=== PATIENT | female | born 1945 | race Caucasian/White ===

== ENCOUNTER 2016-08-09 12:13 | Day surgery (SDC) | payer MEDICARE ==
[2016-08-09] MEDS ORDERED: PROPOFOL 10 MG/ML VIAL IV ONE (15:48)
[2016-08-09] MEDS ORDERED: LIDOCAINE 2% MDV (20MG/ML) 20ML VIAL IV ONE (15:48)
[2016-08-09] MEDS ORDERED: MIDAZOLAM HCL 2MG/2ML VIAL IV ONE (15:48)
--- NOTE | 2016-08-11 07:00 | Operative Note ---
DATE OF SURGERY: OPERATION: COLONOSCOPY with cold forceps polypectomy. PREOPERATIVE DIAGNOSIS: History of adenomatous polyps. POSTOPERATIVE DIAGNOSES: 1. Severe radiation proctosigmoiditis. 2. Descending colon polyp. PREPARATION QUALITY: Good. ESTIMATED BLOOD LOSS: Minimal. SPECIMENS: Descending colon polyp. PROCEDURE: After informed consent was obtained from the patient, she was placed in the left lateral decubitus position in the endoscopy suite, sedated and monitored by the department of anesthesia. Digital rectal exam was unremarkable. A well-lubricated [id number] colonoscope was inserted into the rectum and advanced through a severely stenotic and stiffened rectosigmoid colon to the descending colon, transverse colon, ascending colon to the level of the ileocecal valve. I did not intubate the cecal cap per se but was able to examine the cecum, which appeared unremarkable. Transabdominal pressure and change in patient position was required. I presume there was a significant amount of scarring and perhaps abdominopelvic adhesions restricting ease of passage of the colonoscope. In any event, the cecum, ascending colon, and transverse colon were unremarkable. The descending revealed diminutive polyp removed in piecemeal fashion with a cold forceps. The remainder of the descending colon and sigmoid colon and rectum were unremarkable other than the aforementioned radiation changes. I did not invert the endoscope secondary to the prior radiation and stenosis. The rectal ampulla deflated, and the endoscope was removed. RECOMMENDATIONS: I would suggest the patient undergo a repeat colonoscopy in 5 years. As always, thank you for allowing me to participate in the healthcare of your patients. Roe Magallon DO CC: Malik MOSQUEDA
== END 2016-08-09 14:14 | disposition home or self-care (01) ==
LOC: HOP 12:13
PROVIDERS: ATTEND Internal Medicine Gastroenterology
DX: Z12.11 Encounter for screening for malignant neoplasm of colon (principal); D12.4 Benign neoplasm of descending colon; K63.5 Polyp of colon; E78.00 Pure hypercholesterolemia, unspecified; I10 Essential (primary) hypertension; E03.9 Hypothyroidism, unspecified

== ENCOUNTER 2017-07-09 17:15 | Emergency (ER) | payer MEDICARE ==
[2017-07-09] MEDS ORDERED: SODIUM CHLORIDE 0.9% 500 ML IV ONE (18:15)
[2017-07-09] MEDS ORDERED: ACETAMINOPHEN 1,000 MG/100 ML BTL IVPB ONE (18:16)
--- NOTE | 2017-07-09 18:21 | Emergency Department Record ---
History of Present Illness - General Chief complaint: Flank Pain Stated complaint: LOWER BACK PAIN/KIDNEY STONES Time Seen by Provider: 07/09/17 18:10 Source: Patient, Family Mode of Arrival: Ambulatory Limitations: No limitations - History of Present Illness Initial comments: 71 yo female presents with left flank pain that started today. The pain is somewhat sharp and comes and goes. She reports she has had kidney stones in the past. This pain is similar. She does report however that the pain is worse with getting up and moving. She has a history of scoliosis as well. No abdominal pain. No fevers, chills, nausea, or vomiting. No diarrhea or changes in the stools. No blood in the stools. PCP Hankenson. QUINN Complaint: Other Onset/Timin -: Hour(s) Radiation: L flank Severity: Moderate Quality: Aching, Sharp Consistency: Constant Improves with: Other Worsens with: Movement Patient : No Associated Symptoms: Denies other symptoms - Related Data Allergies Allergy/AdvReac Type Severity Reaction Status Date / Time ibuprofen [IBUPROFEN] Allergy Intermediate RAPID Verified 08/27/15 09:16 HEART RATE Travel Screening - Travel/Exposure Within Last 30 Days Have you traveled within the last 30 days?: No - Travel/Exposure Within Last Year Have you traveled outside the [place] in the last year?: No - Additonal Travel Details Have you been exposed to anyone with a communicable illness?: No - Travel Symptoms Symptom Screening: None Review of Systems Constitutional: Denies: Chills, Fever, Malaise, Night sweats, Weakness Eyes: Denies: Eye discharge, Eye pain, Photophobia, Vision change ENT: Denies: Congestion, Throat pain Respiratory: Denies: Cough, Dyspnea, Hemoptysis, Stridor, Wheezes Cardiovascular: Denies: Chest pain, Palpitations, Syncope Endocrine: Denies: Fatigue Gastrointestinal: Reports: As per HPI, Other (Left flank pain). Denies: Abdominal pain, Diarrhea, Nausea, Vomiting Genitourinary: Denies: Dysuria, Hematuria, Urgency Musculoskeletal: Reports: As per HPI, Back pain. Denies: Arthralgia, Neck pain Skin: Denies: Bruising, Change in color, Pruritus, Rash Neurological: Denies: Confusion, Headache, Numbness, Weakness Psychiatric: Denies: Anxiety Hematological/Lymphatic: Denies: Anemia, Blood Clots, Easy bleeding, Easy bruising, Swollen glands Past Medical History - SOCIAL HISTORY Smoking Status: Never smoker Alcohol Use: None Drug Use: None - RESPIRATORY Hx Respiratory Disorders: Yes Hx Pneumonia: Yes (06/20) - CARDIOVASCULAR Hx Cardio Disorders: Yes Hx Deep Vein Thrombosis: Yes (left leg after hyst.) Hx Hypertension: Yes (on meds good control) Hx Irregular Heartbeat: Yes (i have afib. probs with bleeding on coumadin) Comment:: cardioversion 2008 - [facility] Hx Neuro Disorders: Yes Hx Neuropathy: Yes Hx TIA: Yes (no residual) Hx Weakness: Yes (generalized) - GI Hx GI Disorders: Yes Hx Abdominal Pain: Yes Hx Irritable Bowel: Yes Hx Ulcer: Yes Hx of Polyps: Yes Comment:: GI BLEED POST COUMADIN THERAPY - Hx Genitourinary Disorders: Yes Hx Bladder Problem: Yes (leaking/incontinence) Hx Kidney Stones: Yes - ENDOCRINE Hx Endocrine Disorders: Yes Hx Thyroid Disease: Yes - MUSCULOSKELETAL Hx Musculoskeletal Disorders: Yes Hx Arthritis: Yes Hx Gout: Yes Hx Osteoporosis: Yes - PSYCH Hx Psych Problems: No - HEMATOLOGY/ONCOLOGY Hx Hematology/Oncology Disorders: Yes Hx Anemia: Yes Hx Cancer: Yes (uterine) Hx Radiation Therapy: Yes Hx Clotting Problems: Yes (intestinal bleeding when on coumadin) Hx Blood Transfusions: Yes Family Medical History Any Significant Family History?: No Hx Cancer: Mother Hx Diabetes: Grandparents Hx Heart Disease: Mother, Grandparents Physical Exam - General General Appearance: Alert, Oriented x3, Cooperative, No acute distress Limitations: No limitations - Head Head exam: Atraumatic, Normocephalic, Normal inspection - Eye Eye exam: Normal appearance. negative: Conjunctival injection, Periorbital swelling, Scleral icterus - ENT ENT exam: Normal exam, Mucous membranes moist Ear exam: Normal external inspection Nasal Exam: Normal inspection Mouth exam: Normal external inspection - Neck Neck exam: Normal inspection, Full ROM. negative: Tenderness - Respiratory Respiratory exam: Normal lung sounds bilaterally. negative: Accessory muscle use, Decreased breath sounds, Respiratory distress, Rhonchi, Stridor, Wheezes - Cardiovascular Cardiovascular Exam: Regular rate, Normal rhythm, Normal heart sounds - GI/Abdominal GI/Abdominal exam: Soft. negative: Normal bowel sounds, Distended, Guarding, Hernia, Rebound, Rigid, Tenderness - Rectal Rectal exam: Deferred - exam: Deferred - Extremities Extremities exam: Normal inspection, Full ROM, Normal capillary refill. negative: Pedal edema, Tenderness - Back Back exam: Reports: Normal inspection, CVA tenderness (L), Full ROM, Tenderness. Denies: Muscle spasm, Rash noted - Neurological Neurological exam: negative: Abnormal gait, Alert, Altered, Oriented X3, Reflexes normal - Psychiatric Psychiatric exam: Normal affect, Normal mood. negative: Agitated, Anxious - Skin Skin exam: Dry, Intact, Normal color, Warm Course Vital Signs 07/09/17 17:58 Temperature 99.4 F Pulse Rate 112 H Respiratory 20 Rate Blood Pressure 130/81 Pulse Ox 95 - Reevaluation(s) Reevaluation #1: 07/09/17 18:45 The labs were reviewed The WBC count is elevated at 16 The UA is N+ and LE+ 07/09/17 20:[address] was reviewed She has severe left sided Hydronephrosis and Hydroureter NO definite stone but beam hardening artifact limits the pelvis somewhat. 07/09/17 20:21 The patient prefers [facility] for transfer I paged the electronic prepress operator IM and Urology. 07/09/17 20:27 I SW the hospitalist electronic prepress operator Dr Morris She accepts the patient for transfer Awaiting call back from urology 07/09/17 20:54 The urology resident called back and was given the patient information for transfer consultation. Medical Decision Making - Lab Data Result diagrams: 07/09/17 18:17 07/09/17 18:17 Disposition Disposition: Transfer Clinical Impression: Hydronephrosis Urinary tract infection Qualifiers: Urinary tract infection type: site unspecified Hematuria presence: without hematuria Qualified Code(s): N39.0 - Urinary tract infection, site not specified Disposition: Acute Care Hospital Transfer Transfer To: [facility] Reason For Transfer: Ureteral Obstruction with infection Accepting Physician: Arturo Time Discussed w/Accepting Physician: 20:28 Condition: (2) Stable Forms: Patient Portal Access Time of Disposition: 20:28 Quality - Quality Measures Quality Measures: N/A - Blood Pressure Screening Does Patient Have Any of the Following: No Blood Pressure Classification: Normal BP Reading Systolic Measurement: 109 Diastolic Measurement: 57 Screening for High Blood Pressure: < Normal BP, F/U Not Required > [G8783] Pre-Hypertensive Follow-up Interventions: Referral to alternative/primary care provider.
[2017-07-09 18:24] LABS: HEMATOCRIT 36.6 % (35.0-47.0); HEMOGLOBIN 12.2 gm/dl (11.6-16.0); MEAN CELL VOLUME 102.2 fl (81-97); MEAN CORPUSCULAR HGB CONC 33.3 g/dl (32-36); MEAN PLATELET VOLUME 10.4 fl (7.4-10.4); PLATELET COUNT 239 K/uL (130-400); RED BLOOD COUNT 3.58 M/uL (3.80-5.40); RED CELL DISTRIBUTION WIDTH 13.8 % (11.5-14.5); WHITE BLOOD COUNT W/O DIFF 16.6 K/uL (4.2-12.2)
[2017-07-09 18:35] LABS: URINE APPEARANCE CLOUDY; URINE BILIRUBIN NEGATIVE (NEGATIVE); URINE BLOOD MODERATE (NEGATIVE); URINE COLOR YELLOW; URINE GLUCOSE (UA) NEGATIVE (NEGATIVE); URINE KETONE NEGATIVE (NEGATIVE); URINE LEUKOCYTE ESTERASE LARGE (NEGATIVE); URINE NITRITE POSITIVE (NEGATIVE); URINE UROBILINOGEN 0.2 E.U./dL (0.20 - 1.00)
[2017-07-09 18:37] LABS: BLOOD UREA NITROGEN 19 mg/dL (8-23); CREATININE 0.9 mg/dL (0.5-0.9); EST GLOMERULAR FILTRATION RATE > 60 mL/min
[2017-07-09 18:40] LABS: GLUCOSE,RANDOM 195 mg/dL (74-109); INR 0.97; PARTIAL THROMBOPLASTIN TIME 26.1 SECONDS (24.5-39.1); PROTHROMBIN TIME (PATIENT) 10.5 SECONDS (9.5-12.1)
[2017-07-09 18:48] LABS: URINE BACTERIA 3+; URINE EPITHELIAL CELLS 0 - 2 (FEW)
[2017-07-09] MEDS ORDERED: CEFTRIAXONE SODIUM 1 GM in 0.9 % SODIUM CHLORIDE 100ML 100 ML IVPB ONE (19:14)
[2017-07-09] MEDS ORDERED: MORPHINE SULFATE 5 MG/ML PFS IVP ONE (19:31)
[2017-07-09] MEDS ORDERED: 0.9 % SODIUM CHLORIDE 1000ML 1,000 ML IV ONE (20:23)
[2017-07-09] MEDS ORDERED: KETOROLAC 30 MG/ML VIAL IVP ONE (20:23)
--- NOTE | 2017-07-10 19:20 | CT SCAN REPORT ---
EXAM: CT SCAN ABDOMEN/PELVIS WO CONTRAST HISTORY: LEFT FLANK PAIN, HEMATURIA. TECHNIQUE: Sequential axial images were obtained from the diaphragms through the ischiorectal fossa without intravenous or oral contrast administration. FINDINGS: There is severe left hydronephrosis/hydroureter. The exact transition point is difficult to observe due to artifact from left hip prosthesis. No calculus is appreciated, however. No gross abnormalities within the urinary bladder. There is s small and large bowel-containing Spigelian hernia. No evidence of obstruction. The unopacified liver appears normal. Gallbladder appears normal. The pancreas and spleen appear normal. The adrenal glands appear normal. There are expansile cystic lesions in the sacrum, likely related to diverticula. These appear similar in appearance when compared to the prior examination. The small and large bowel appears normal. There is atheromatous change of the abdominal vasculature. There is severe scoliotic curvature of the thoracolumbar spine. IMPRESSION: 1. SEVERE LEFT HYDRONEPHROSIS/HYDROURETER. THE TRANSITION POINT IS DIFFICULT TO EVALUATE DUE TO BEAM-HARDENING ARTIFACT FROM LEFT HIP PROSTHESIS. 2. 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 NO EVIDENCE OF OBSTRUCTION. 3. SEVERE SCOLIOTIC CURVATURE OF THE THORACOLUMBAR SPINE. 4. EXPANSILE LESIONS IN THE SACRUM/COCCYX. 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 5. 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 JOB NUMBER: [id number] [facility]
== END 2017-07-09 21:56 | disposition short-term general hospital (02) ==
LOC: ER 17:15
DX: N13.30 Unspecified hydronephrosis (principal); N39.0 Urinary tract infection, site not specified; R31.0 Gross hematuria; K43.9 Ventral hernia without obstruction or gangrene; I10 Essential (primary) hypertension; Z87.442 Personal history of urinary calculi
CPT/HCPCS: 74176; 80048; 81001; 85027; 85610; 85730; 96361; 96365; 96366; 96375; 99285; J1885; J7030

== ENCOUNTER 2017-12-18 10:31 | Emergency (ER) | payer MEDICARE ==
--- NOTE | 2017-12-18 10:58 | Emergency Department Record ---
History of Present Illness - General Chief Complaint: Fall Injury Stated Complaint: FALL/HIP PAIN Time Seen by Provider: 12/18/17 10:52 Source: Patient, RN notes reviewed Mode of Arrival: Wheelchair - History of Present Illness Initial Comments: fall yesterday and having left hip pain and worse when she walks on it. 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 Fall Witnessed: No Place Fall Occurred: Home Loss of Consciousness: None Prolonged Down Time?: No Symptoms Prior to Fall: None Severity: Moderate Severity scale (1-10): 6 Quality: Aching Associated Symptoms: Denies - Trey Coma Scale Eye Response: (4) Open spontaneously Motor Response: (6) Obeys commands Verbal Response: (5) Oriented Trey Total: 15 - Related Data Allergies Allergy/AdvReac Type Severity Reaction Status Date / Time ibuprofen [IBUPROFEN] Allergy Intermediate RAPID Verified 12/18/17 10:37 HEART RATE Travel Screening - Travel/Exposure Within Last 30 Days Have you traveled within the last 30 days?: No Review of Systems Reviewed: No additional complaints except as noted below Constitutional: Reports: As per HPI. Denies: Chills, Fever, Malaise, Night sweats, Weakness, Weight change Eyes: Reports: As per HPI. Denies: Eye discharge, Eye pain, Photophobia, Vision change ENT: Reports: As per HPI. Denies: Congestion, Dental pain, Ear pain, Epistaxis , Hearing loss, Throat pain Respiratory: Reports: As per HPI. Denies: Cough, Dyspnea, Hemoptysis, Stridor, Wheezes Cardiovascular: Reports: As per HPI. Denies: Arrhythmia, Chest pain, Dyspnea on exertion, Edema, Murmurs, Orthopnea, Palpitations, Paroxysmal nocturnal dyspnea, Rheumatic Fever, Syncope Endocrine: Reports: As per HPI. Denies: Fatigue, Heat or cold intolerance, Polydipsia, Polyuria Gastrointestinal: Reports: As per HPI. Denies: Abdominal pain, Constipation, Diarrhea, Hematemesis, Hematochezia, Melena, Nausea, Vomiting Genitourinary: Reports: As per HPI. Denies: Abnormal menses, Discharge, Dyspareunia, Dysuria, Frequency, Hematuria, Incontinence, Retention, Urgency Musculoskeletal: Reports: As per HPI. Denies: Arthralgia, Back pain, Gout, Joint swelling, Myalgia, Neck pain Skin: Reports: As per HPI. Denies: Bruising, Change in color, Change in hair/ nails, Lesions, Pruritus, Rash Neurological: Reports: As per HPI. Denies: Abnormal gait, Confusion, Headache, Numbness, Paresthesias, Seizure, Tingling, Tremors, Vertigo, Weakness Psychiatric: Reports: As per HPI. Denies: Anxiety, Auditory hallucinations, Depression, Homicidal thoughts, Suicidal thoughts, Visual hallucinations Hematological/Lymphatic: Reports: As per HPI. Denies: Anemia, Blood Clots, Easy bleeding, Easy bruising, Swollen glands Past Medical History - SOCIAL HISTORY Smoking Status: Never smoker Alcohol Use: None Drug Use: None - RESPIRATORY Hx Respiratory Disorders: Yes Hx Pneumonia: Yes (06/20) - CARDIOVASCULAR Hx Cardio Disorders: Yes Hx Deep Vein Thrombosis: Yes (left leg after hyst.) Hx Hypertension: Yes (on meds good control) Hx Irregular Heartbeat: Yes Comment:: cardioversion 2008 - [facility]URO Hx Neuro Disorders: Yes Hx Neuropathy: Yes Hx TIA: Yes (no residual) Hx Weakness: Yes (generalized) - GI Hx GI Disorders: Yes Hx Abdominal Pain: Yes Hx Irritable Bowel: Yes Hx Ulcer: Yes Hx of Polyps: Yes - Hx Genitourinary Disorders: Yes Hx Bladder Problem: Yes (leaking/incontinence) Hx Kidney Stones: Yes - ENDOCRINE Hx Endocrine Disorders: Yes Hx Thyroid Disease: Yes - MUSCULOSKELETAL Hx Musculoskeletal Disorders: Yes Hx Arthritis: Yes Hx Gout: Yes Hx Osteoporosis: Yes - PSYCH Hx Psych Problems: No - HEMATOLOGY/ONCOLOGY Hx Hematology/Oncology Disorders: Yes Hx Anemia: Yes Hx Cancer: Yes (uterine) Hx Radiation Therapy: Yes Hx Clotting Problems: Yes Hx Blood Transfusions: Yes Family Medical History Any Significant Family History?: Yes Hx Cancer: Mother Hx Diabetes: Grandparents Hx Heart Disease: Mother, Grandparents Physical Exam - General General Appearance: Alert, Oriented x3, Cooperative, No acute distress - Head Head exam: Normal inspection - Eye Eye exam: Normal appearance, PERRL Pupils: Normal accommodation - ENT ENT exam: Normal exam, Mucous membranes moist, Normal external ear exam, Normal orophraynx, TM's normal bilaterally Ear exam: Normal external inspection. negative: External canal tenderness Nasal Exam: Normal inspection. negative: Discharge, Sinus tenderness Mouth exam: Normal external inspection, Tongue normal Teeth exam: Normal inspection. negative: Dental caries Throat exam: Normal inspection. negative: Tonsillar erythema, Tonsillar exudate - Neck Neck exam: Normal inspection, Full ROM. negative: Tenderness - Respiratory Respiratory exam: Normal lung sounds bilaterally. negative: Respiratory distress - Cardiovascular Cardiovascular Exam: Regular rate, Normal rhythm, Normal heart sounds - GI/Abdominal GI/Abdominal exam: Soft, Normal bowel sounds. negative: Tenderness - Rectal Rectal exam: Deferred - exam: Deferred - Extremities Extremities exam: Normal inspection, Full ROM, Normal capillary refill, Tenderness (left hip pain) - Back Back exam: Reports: Normal inspection, Full ROM. Denies: Muscle spasm, Rash noted, Tenderness - Neurological Neurological exam: Alert, Normal gait, Oriented X3, Reflexes normal - Psychiatric Psychiatric exam: Normal affect, Normal mood - Skin Skin exam: Dry, Intact, Normal color, Warm Course Vital Signs 12/18/17 10:34 Temperature 98.0 F Pulse Rate 105 H Respiratory 20 Rate Blood Pressure 146/70 Pulse Ox 95 - Reevaluation(s) Reevaluation #1: discussed case with Dr. Woodard and will admit to [facility] 12/18/17 13:25 Medical Decision Making - Data Complexity MDM Data: Labs Ordered and/or Reviewed (hg 9), X-Ray Ordered and/or Reviewed ( greater trochanteric hip fracture) - Lab Data Result diagrams: 12/18/17 11:05 12/18/17 11:05 Disposition Clinical Impression: Hip pain, left Hip fracture, left Qualifiers: Encounter type: initial encounter Fracture type: closed Qualified Code(s): S72.002A - Fracture of unspecified part of neck of left femur, initial encounter for closed fracture Disposition: Acute Care Hospital Transfer Condition: (2) Stable Forms: Patient Portal Access Time of Disposition: 13:16 Quality - Quality Measures Quality Measures: N/A - Blood Pressure Screening Does Patient Have Any of the Following: No Blood Pressure Classification: Hypertensive Reading Systolic Measurement: 146 Diastolic Measurement: 70 Screening for High Blood Pressure: < Pre-Hypertensive BP, F/U Documented > [ G8950] Pre-Hypertensive Follow-up Interventions: Referral to alternative/primary care provider.
[2017-12-18 11:13] LABS: BASO % 0.2 % (0-6); EOS % 0.2 % (0-6); GRAN % 75.2 % (47-80); HEMATOCRIT 30.1 % (35.0-47.0); HEMOGLOBIN 9.6 gm/dl (11.6-16.0); MEAN CELL VOLUME 101.7 fl (81-97); MEAN CORPUSCULAR HEMOGLOBIN 32.4 pg (27-33); MEAN CORPUSCULAR HGB CONC 31.9 g/dl (32-36); MONO % 8.4 % (0-9); PLATELET COUNT 288 K/uL (130-400); RED BLOOD COUNT 2.96 M/uL (3.80-5.40); RED CELL DISTRIBUTION WIDTH 15.2 % (11.5-14.5); WHITE BLOOD COUNT W/O DIFF 9.3 K/uL (4.2-12.2)
[2017-12-18 11:22] LABS: CREATININE 1.4 mg/dL (0.5-0.9)
[2017-12-18] MEDS ORDERED: MORPHINE SULFATE 4MG/ML PREFILLED SYRINGE IVP ONE (14:00)
--- NOTE | 2017-12-19 15:20 | RADIOLOGY REPORT ---
EXAM: CHEST, TWO VIEWS HISTORY: CHEST PAIN. TECHNIQUE: Frontal and lateral views of the chest were obtained. Comparison: None. FINDINGS: Cardiomegaly. Atheromatous change and ectasia of the thoracic aorta. Osteopenia. COPD. Calcified granuloma in the right mid lung. The lungs are otherwise clear. No pneumothorax. IMPRESSION: CARDIOMEGALY. COPD. NO ACUTE CARDIOPULMONARY PROCESS. JOB NUMBER: [id number] [facility]
--- NOTE | 2017-12-19 15:24 | RADIOLOGY REPORT ---
EXAM: PELVIS AND LEFT HIP HISTORY: FALL. TECHNIQUE: AP view of the pelvis and three views of the left hip were obtained. Comparison: Prior pelvis and left hip from 09/15/14. FINDINGS: Osteopenia. Status post total left hip arthroplasty. Mildly displaced fracture of the left greater trochanter with evidence of heterotopic bone formation as well. No dislocation. Chronic changes to the symphysis pubis. Advanced degenerative change right hip. Vascular calcifications. Degenerative change lower lumbar spine and sacroiliac joints. IMPRESSION: 1. OSTEOPENIA. MILDLY DISPLACED FRACTURE OF THE LEFT GREATER TROCHANTER. LEFT HIP ARTHROPLASTY. 2. EXTENSIVE DEGENERATIVE CHANGE. JOB NUMBER: [id number] [facility]TDD
== END 2017-12-18 14:17 | disposition short-term general hospital (02) ==
LOC: ER 10:31
DX: S72.002A Fracture of unspecified part of neck of left femur, initial encounter for closed fracture (principal); I10 Essential (primary) hypertension; W17.89XA Other fall from one level to another, initial encounter; Y92.009 Unspecified place in unspecified non-institutional (private) residence as the place of occurrence of the external cause
CPT/HCPCS: 99285 ×2; 96374; 85025; 85730; 80048; 71046; 73502; J2274